=== PATIENT | female | born 1990 | race Asian ===

== ENCOUNTER 2023-05-16 18:29 | Inpatient (IN) ==
[2023-05-16] MEDS ORDERED: Promethazine INJ(RESTRICTED) 25 MG/ML 1 ml VIAL IV PRN (19:46)
[2023-05-16] MEDS ORDERED: Buffered Lidocaine 1% SYRIN 1 ml INTRADERM ONE (19:46)
[2023-05-16] MEDS ORDERED: Lactated Ringers 1000 ml BAG 1,000 ML IV ONE (19:46)
[2023-05-16] MEDS ORDERED: Dinoprostone 10 MG VAG.SUPP VAGINAL ONE (19:46)
[2023-05-16] MEDS ORDERED: Lactated Ringers 1000 ml BAG 1,000 ML IV SCH (20:00)
[2023-05-16 20:38] LABS: Urine Benzodiazepine Screen None Detected (None Detect); Urine Cannabinoids Screen None Detected (None Detect); Urine Opiates Screen None Detected (None Detect)
[2023-05-16] MEDS ORDERED: Morphine 10 MG/ML VIAL (1 ml) IV PRN (20:43)
[2023-05-17 08:26] LABS: ABS Basophils 0.1 10^3/uL (0.0-0.1); ABS Eosinophils 0.1 10^3/uL (0.0-0.5); ABS Lymphocytes 2.4 10^3/uL (1.0-4.8); ABS Monocytes 0.7 10^3/uL (0.0-0.9); ABS Neutrophils 9.5 10^3/uL (1.5-7.6); ABS Nucleated RBC 0.01 10^3/ul; Eosinophil % 1.1 %; Hematocrit 33.6 % (35-45); Hemoglobin 11.4 g/dL (11.5-14.3); Lymphocyte % 18.5 %; Mean Corpuscular Hemoglobin 26.5 pg (27-33); Mean Corpuscular Hgb Conc 33.9 g/dL (31-36); Mean Corpuscular Volume 78.2 fL (80-97); Mean Platelet Volume 9.6 fL (7.5-11.2); Nucleated Red Blood Cells % 0.1 /100 WBC (0.0-0.4); Platelet Count 307 10^3/uL (150-450); Red Cell Distribution Width 16.2 % (12-17); White Blood Count 12.8 10^3/uL (3.8-11.8)
[2023-05-17 08:50] LABS: Albumin 3.5 g/dL (3.2-5.2); Potassium 4.2 mmol/L (3.5-5.0); Total Bilirubin 0.4 mg/dL (0.2-1.0)
[2023-05-17 08:56] LABS: Albumin/Globulin Ratio 1.3 (1-3); Creatinine, Serum 0.54 mg/dL (0.51-0.95); Globulin 2.8 g/dL (2-4); Total Protein 6.3 g/dL (6.4-8.9); eGFR CKD-EPI 123.8 (>60)
[2023-05-17] MEDS ORDERED: miSOPROStol 100 mcg TAB VAGINAL ONE (09:18)
[2023-05-17] MEDS ORDERED: Oxytocin in LR 20,000 MILLI.UNIT/1,000 ML BAG IV SCH (13:25)
[2023-05-18] MEDS ORDERED: Labetalol IV 5 MG/ML 20 ml VIAL IV PUSH ONE (02:48)
[2023-05-18] MEDS ORDERED: OBEPIDURAL (200 ML) 200 ML EPIDURAL ONE (04:58)
[2023-05-18] MEDS ORDERED: Ropivacaine (OR use only) 2 MG/ML 10 ML ONE ×2 (05:01)
[2023-05-18] MEDS ORDERED: Bupivacaine 0.25% SDV PF 10 ML VIAL INJ ONE (05:13)
[2023-05-18] MEDS ORDERED: Lactated Ringers 1000 ml BAG 1,000 ML IV ONE (05:33)
[2023-05-18] MEDS ORDERED: Phenylephrine 40 mcg/mL 10mL (400mcg) SYRINGE IV PUSH PRN ×2 (05:33)
[2023-05-18] MEDS ORDERED: OBEPIDURAL (200 ML) 200 ML EPIDURAL SCH (06:00)
[2023-05-18] MEDS ORDERED: Lactated Ringers 1000 ml BAG 1,000 ML IV SCH ×2 (06:00→09:00)
[2023-05-18 06:10] LABS: Urine Appearance Cloudy; Urine Bilirubin Negative (Negative); Urine Blood Negative (Negative); Urine Color Yellow; Urine Glucose Negative (Negative); Urine Ketones 2+ (Negative); Urine Nitrite Negative (Negative); Urine Protein 2+(100 mg/dL) (Negative); Urine Specific Gravity 1.016 (1.002-1.030); Urine Urobilinogen Negative (Negative)
[2023-05-18 06:21] LABS: Urine Amorphous Crystals Present (Absent); Urine Bacteria Absent (Absent); Urine Red Blood Cell Absent (Absent); Urine Squamous Epithelial Cell Present (Absent); Urine White Blood Cell 1+(6-10/hpf) (Absent)
[2023-05-18] MEDS ORDERED: Oxytocin in LR 20,000 MILLI.UNIT/1,000 ML BAG IV ONE (08:08)
[2023-05-18] MEDS ORDERED: Glycerin ADULT 2.4 gm SUPP PR PRN (08:56)
[2023-05-18] MEDS ORDERED: Witch Hazel PAD JAR TOPICAL PRN (08:56)
[2023-05-18] MEDS ORDERED: Oxytocin in LR 20,000 MILLI.UNIT/1,000 ML BAG IV SCH (09:00)
[2023-05-18] MEDS: Dibucaine 1% OINT 28.35 GM TUBE PR PRN (09:11)
[2023-05-18] MEDS ORDERED: Lidocaine 1% VIAL 10 MG/ML 30 ML VIAL ONE (11:42)
[2023-05-19 06:23] LABS: ABS Eosinophils 0.1 10^3/uL (0.0-0.5); ABS Lymphocytes 2.7 10^3/uL (1.0-4.8); ABS Neutrophils 12.4 10^3/uL (1.5-7.6); ABS Nucleated RBC 0.01 10^3/ul; Eosinophil % 0.6 %; Hematocrit 22.5 % (35-45); Hemoglobin 7.6 g/dL (11.5-14.3); Lymphocyte % 16.4 %; Mean Corpuscular Hemoglobin 26.3 pg (27-33); Mean Corpuscular Hgb Conc 33.5 g/dL (31-36); Mean Corpuscular Volume 78.5 fL (80-97); Mean Platelet Volume 9.3 fL (7.5-11.2); Platelet Count 244 10^3/uL (150-450); Red Blood Count 2.87 10^6/uL (3.63-4.92); Red Cell Distribution Width 16.2 % (12-17); White Blood Count 16.2 10^3/uL (3.8-11.8)
[2023-05-19 20:17] VITALS: BP 128/82
[2023-05-19] MEDS: Dibucaine 1% OINT 28.35 GM TUBE PR PRN (20:21)
[2023-05-20] MEDS: Dibucaine 1% OINT 28.35 GM TUBE PR PRN (08:42)
== END 2023-05-20 11:48 | disposition home or self-care (01) | DRG 542 ==
LOC: MCHOBOUT 18:29 → MCHOB 19:48
PROVIDERS: ADMIT Obstetrics & Gynecology; ATTEND Obstetrics & Gynecology